=== PATIENT | female | born 1980 | race Caucasian/White ===

== ENCOUNTER 2016-07-14 00:56 | Outpatient (CLI) | payer OTHER | END 2016-07-14 03:14 | disposition home or self-care (01) | LOC: GENOP 00:56 | DX: O36.8130 Decreased fetal movements, third trimester, not applicable or unspecified (principal); Z3A.36 36 weeks gestation of pregnancy | CPT/HCPCS: 81001; G0463 ==

== ENCOUNTER 2016-07-19 07:20 | Inpatient (IN) | payer OTHER ==
[2016-07-20 00:26] LABS: WHITE BLOOD COUNT 8.9 K/UL (4.5-11.0)
[2016-07-20 00:27] LABS: HEMOGLOBIN 7.6 gm/dl (12.3-15.3); RED BLOOD COUNT 2.39 M/UL (4.00-5.10)
[2016-07-20 00:40] LABS: BUN/CREATININE RATIO 13 (0-10)
== END 2016-07-21 12:49 | disposition home or self-care (01) | DRG 765 ==
LOC: OB 07:20
PROVIDERS: ADMIT Obstetrics & Gynecology
PROC: 3E0R3CZ (ICD-10-PCS; 2016-07-19)
PROC: 10D00Z1 Extraction of Products of Conception, Low, Open Approach (ICD-10-PCS; principal; 2016-07-19 09:30)
PROC: 30233N1 Transfusion of Nonautologous Red Blood Cells into Peripheral Vein, Percutaneous Approach (ICD-10-PCS; 2016-07-20)
PROC: 30233N1 Transfusion of Nonautologous Red Blood Cells into Peripheral Vein, Percutaneous Approach (ICD-10-PCS; 2016-07-20)
DX: O34.211 Maternal care for low transverse scar from previous cesarean delivery (principal); O90.4 Postpartum acute kidney failure; D62 Acute posthemorrhagic anemia; O90.81 Anemia of the puerperium; N85.8 Other specified noninflammatory disorders of uterus; O90.89 Other complications of the puerperium, not elsewhere classified; E86.0 Dehydration; I95.9 Hypotension, unspecified; Z3A.37 37 weeks gestation of pregnancy; Z37.0 Single live birth; O09.523 Supervision of elderly multigravida, third trimester; R11.2 Nausea with vomiting, unspecified; O09.293 Supervision of pregnancy with other poor reproductive or obstetric history, third trimester; O99.334 Smoking (tobacco) complicating childbirth; F17.200 Nicotine dependence, unspecified, uncomplicated; O99.214 Obesity complicating childbirth; E66.9 Obesity, unspecified; Z68.35 Body mass index [BMI] 35.0-35.9, adult
CPT/HCPCS: 36415; 36430; 80053; 81001; 82800; 85014; 85018; 85025; 85610; 85730; 86850; 86900; 86901; 86920; C9113; J0690; J1885; J2274; J2405; J2590; J2765; J3430; J7040; J7120; P9016